=== PATIENT | female | born 1950 | race African-American/Black ===

== ENCOUNTER 2017-03-14 13:54 | Inpatient (IN) | payer MEDICAID ==
[~2017-03-14] VITALS: Ht 160 cm; Wt 114.0 kg
[2017-03-14 15:02] LABS: INR 1.1; PROTHROMBIN TIME 11.4 sec (9.4-11.6)
[2017-03-14 15:03] LABS: BASOPHILS % 0.7 % (0.0-2.0); HEMATOCRIT. 41.6 % (36.0-48.0); HEMOGLOBIN. 14.2 g/dL (12.0-16.0); LYMPHOCYTES % 31.6 % (20.0-50.0); MEAN CORPUSCULAR HEMOGLOBIN 31.6 pg (28.0-32.0); MEAN CORPUSCULAR VOLUME 92.3 fL (81.0-99.0); MONOCYTES % 9.6 % (2.0-8.0); NEUTROPHILS % 57.1 % (40.0-76.0); PLATELET 388 x1000/uL (130-400); RED BLOOD CELL COUNT 4.51 mill/uL (4.2-5.4)
[2017-03-14 15:45] LABS: CLARITY URINE CLEAR (CLEAR); COLOR URINE YELLOW (YELLOW); GLUCOSE URINE NEGATIVE (NEGATIVE); KETONES URINE TRACE (NEGATIVE); LEUKOCYTE ESTERASE URINE NEGATIVE (NEGATIVE); NITRITE URINE NEGATIVE (NEGATIVE); OCCULT BLOOD URINE NEGATIVE (NEGATIVE); PH URINE 6.5 (4.5-8.0); PROTEIN URINE NEGATIVE (NEGATIVE)
[2017-03-14 15:59] LABS: *AMPHETAMINES SCREEN URINE NEGATIVE (NEGATIVE); *BARBITURATES SCREEN URINE NEGATIVE (NEGATIVE); *BENZODIAZEPINES SCREEN URINE NEGATIVE (NEGATIVE); *COCAINE SCREEN URINE NEGATIVE (NEGATIVE); CANNABINOID URINE SCREEN NEGATIVE (NEGATIVE); METHADONE URINE SCREEN NEGATIVE (NEGATIVE); OPIATES URINE SCREEN NEGATIVE (NEGATIVE); PHENCYCLIDINE URINE SCREEN NEGATIVE (NEGATIVE)
[2017-03-14 16:38] LABS: CARBON DIOXIDE 25 mEq/L (21-32); CHLORIDE 103 mEq/L (98-107)
[2017-03-14] MEDS ORDERED: POTASSIUM CHLORIDE 20MEQ TABLET SR PO ONE (20:45)
[2017-03-14 22:22] VITALS: BP 184/104
[2017-03-14 22:24] VITALS: BP 184/104
[2017-03-14] MEDS ORDERED: CLONIDINE 0.1MG TABLET PO PRN (23:26)
[2017-03-14] MEDS ORDERED: POTASSIUM CHLORIDE 20MEQ TABLET SR PO NR (23:26)
[2017-03-15] VITALS (7 sets, daily range): BP systolic 109–157; BP diastolic 73–102
[2017-03-15 07:06] LABS: BASOPHILS % 0.4 % (0.0-2.0); HEMOGLOBIN. 12.9 g/dL (12.0-16.0); LYMPHOCYTES % 31.7 % (20.0-50.0); MEAN CORPUSCULAR HEMOGLOBIN 31.6 pg (28.0-32.0); MEAN CORPUSCULAR VOLUME 93.4 fL (81.0-99.0); MEAN PLATELET VOLUME 8.7 fl (7.4-10.4); MONOCYTES % 11.9 % (2.0-8.0); PLATELET 320 x1000/uL (130-400); RED BLOOD CELL COUNT 4.07 mill/uL (4.2-5.4); RED CELL DISTRIBUTION WIDTH 13.5 % (11.6-14.6)
[2017-03-15 07:44] LABS: CARBON DIOXIDE 23 mEq/L (21-32); CHLORIDE 108 mEq/L (98-107)
[2017-03-15] MEDS ORDERED: POTASSIUM CHLORIDE 20MEQ TABLET SR PO NR (08:45)
[2017-03-15] MEDS: METOPROLOL TARTRATE 50MG TABLET PO SCH ×2 (08:48→21:00)
[2017-03-15] MEDS: AMLODIPINE 10MG TABLET PO SCH (08:49)
[2017-03-15] MEDS: ASPIRIN 325MG EC TABLET PO SCH (14:22)
[2017-03-15] MEDS: ENOXAPARIN 100MG/ML SYR SUBCUT SCH (14:22)
[2017-03-15 15:17] LABS: VITAMIN B12 SERUM 900 pg/mL (211-911)
[2017-03-15 15:29] LABS: FOLIC ACID (FOLATE) SERUM > 20.00 ng/mL (>5.38)
[2017-03-16] VITALS: BP 131/94
[2017-03-16] MEDS: ENOXAPARIN 100MG/ML SYR SUBCUT SCH ×2 (01:18→17:11)
[2017-03-16 06:28] VITALS: BP 153/97
[2017-03-16 08:00] VITALS: BP 144/81
[2017-03-16] MEDS: AMLODIPINE 10MG TABLET PO SCH (08:49)
[2017-03-16] MEDS: METOPROLOL TARTRATE 50MG TABLET PO SCH ×2 (08:49→21:00)
[2017-03-16] MEDS: ASPIRIN 325MG EC TABLET PO SCH (08:49)
[2017-03-16 09:19] LABS: T4 FREE 1.25 ng/dL (0.76-1.46)
[2017-03-16 12:00] VITALS: BP 139/94
[2017-03-16 16:00] VITALS: BP 120/75
[2017-03-16 20:00] VITALS: BP 107/76
[2017-03-16] MEDS: ATORVASTATIN CALCIUM 20MG TABLET PO SCH (21:00)
[2017-03-17] VITALS: BP 141/84
[2017-03-17] MEDS: ENOXAPARIN 100MG/ML SYR SUBCUT SCH ×2 (02:07→15:11)
[2017-03-17 04:00] VITALS: BP 125/83
[2017-03-17 08:00] VITALS: BP 150/84
[2017-03-17] MEDS: AMLODIPINE 10MG TABLET PO SCH (08:54)
[2017-03-17] MEDS: METOPROLOL TARTRATE 50MG TABLET PO SCH ×2 (08:55→22:19)
[2017-03-17] MEDS: ASPIRIN 325MG EC TABLET PO SCH (08:55)
[2017-03-17 12:21] VITALS: BP 159/72
[2017-03-17 16:19] VITALS: BP 126/79
[2017-03-17 20:00] VITALS: BP 123/80
[2017-03-17] MEDS: ATORVASTATIN CALCIUM 20MG TABLET PO SCH (22:19)
[2017-03-17] MEDS ORDERED: WARFARIN SODIUM 7.5MG TABLET PO SCH (23:30)
[2017-03-18] VITALS: BP 143/92
[2017-03-18] MEDS: ENOXAPARIN 100MG/ML SYR SUBCUT SCH ×2 (03:49→15:01)
[2017-03-18 04:00] VITALS: BP 134/88
[2017-03-18 06:53] LABS: INR 1.1; PROTHROMBIN TIME 11.1 sec (9.4-11.6)
[2017-03-18 07:03] LABS: HEMATOCRIT. 36.1 % (36.0-48.0); HEMOGLOBIN. 12.2 g/dL (12.0-16.0); MEAN CORPUSCULAR HEMOGLOBIN 31.7 pg (28.0-32.0); MEAN CORPUSCULAR VOLUME 94.1 fL (81.0-99.0); PLATELET 263 x1000/uL (130-400); RED BLOOD CELL COUNT 3.84 mill/uL (4.2-5.4); RED CELL DISTRIBUTION WIDTH 13.3 % (11.6-14.6)
[2017-03-18 07:55] LABS: CARBON DIOXIDE 24 mEq/L (21-32); CHLORIDE 107 mEq/L (98-107)
[2017-03-18 08:00] VITALS: BP 135/87
[2017-03-18] MEDS: ASPIRIN 325MG EC TABLET PO SCH (09:36)
[2017-03-18] MEDS: METOPROLOL TARTRATE 50MG TABLET PO SCH ×2 (09:36→21:34)
[2017-03-18] MEDS: AMLODIPINE 10MG TABLET PO SCH (09:36)
[2017-03-18 11:54] VITALS: BP 119/63
[2017-03-18 16:00] VITALS: BP 148/82
[2017-03-18] MEDS ORDERED: WARFARIN SODIUM 7.5MG TABLET PO NR (18:00)
[2017-03-18] MEDS ORDERED: BISACODYL 5MG TABLET PO PRN (18:15)
[2017-03-18] MEDS: DOCUSATE SODIUM 100MG CAPSULE PO SCH (18:41)
[2017-03-18 20:00] VITALS: BP 133/84
[2017-03-18 20:42] LABS: PLATELET ESTIMATE NORMAL
[2017-03-18] MEDS: ATORVASTATIN CALCIUM 20MG TABLET PO SCH (21:34)
[2017-03-19] VITALS: BP 126/85
[2017-03-19 04:00] VITALS: BP 146/83
[2017-03-19] MEDS: ENOXAPARIN 100MG/ML SYR SUBCUT SCH ×2 (04:12→15:36)
[2017-03-19 07:01] LABS: INR 1.1
[2017-03-19 08:00] VITALS: BP 148/93
[2017-03-19] MEDS: AMLODIPINE 10MG TABLET PO SCH (10:05)
[2017-03-19] MEDS: ASPIRIN 325MG EC TABLET PO SCH (10:05)
[2017-03-19] MEDS: METOPROLOL TARTRATE 50MG TABLET PO SCH ×2 (10:06→21:13)
[2017-03-19] MEDS: DOCUSATE SODIUM 100MG CAPSULE PO SCH ×2 (10:06→17:00)
[2017-03-19 12:06] VITALS: BP 118/79
[2017-03-19 16:00] VITALS: BP 130/92
[2017-03-19] MEDS ORDERED: WARFARIN SODIUM 10MG TABLET PO NR (18:00)
[2017-03-19 20:00] VITALS: BP 132/84
[2017-03-19] MEDS ORDERED: ATORVASTATIN CALCIUM 40MG TABLET PO SCH (21:00)
[2017-03-20] VITALS: BP 135/79
[2017-03-20] MEDS: ENOXAPARIN 100MG/ML SYR SUBCUT SCH ×2 (02:00→14:34)
[2017-03-20 04:00] VITALS: BP 141/80
[2017-03-20 05:40] LABS: INR 1.4; PROTHROMBIN TIME 14.2 sec (9.4-11.6)
[2017-03-20 08:00] VITALS: BP 140/94
[2017-03-20] MEDS ORDERED: FENTANYL CITRATE/PF 50MCG/ML 2ML VIAL ONE (08:38)
[2017-03-20] MEDS ORDERED: MIDAZOLAM HCL 2 MG/2 ML VIAL ONE (08:39)
[2017-03-20] MEDS ORDERED: LIDOCAINE HCL 2% JELLY 5ML ONE (08:56)
[2017-03-20] MEDS ORDERED: TETRACAINE/BENZOCAINE/BUTAMBEN 20 GM SPRAY MM ONE (08:56)
[2017-03-20] MEDS ORDERED: ASPIRIN 81MG TABLET PO SCH (09:00)
[2017-03-20] MEDS: METOPROLOL TARTRATE 50MG TABLET PO SCH (11:12)
[2017-03-20] MEDS: DOCUSATE SODIUM 100MG CAPSULE PO SCH ×2 (11:13→17:25)
[2017-03-20] MEDS: AMLODIPINE 10MG TABLET PO SCH (11:13)
[2017-03-20 12:00] VITALS: BP 135/79
[2017-03-20 12:39] LABS: INR 1.5; PROTHROMBIN TIME 15.3 sec (9.4-11.6)
[2017-03-20 16:00] VITALS: BP 152/98
[2017-03-20] MEDS ORDERED: WARFARIN SODIUM 7.5MG TABLET PO SCH (18:00)
[2017-03-20 22:06] VITALS: BP 119/82
== END 2017-03-21 00:55 | DRG 45 ==
LOC: ER 17:24 → 5WST 19:59 → EDBEDREQ 20:01 → ENRESERV 20:21
PROVIDERS: ADMIT Internal Medicine; ATTEND Internal Medicine
DX: I63.40 Cerebral infarction due to embolism of unspecified cerebral artery (principal); G92 Toxic encephalopathy; E87.8 Other disorders of electrolyte and fluid balance, not elsewhere classified; R13.10 Dysphagia, unspecified; I10 Essential (primary) hypertension; R29.810 Facial weakness; I25.10 Atherosclerotic heart disease of native coronary artery without angina pectoris; E78.00 Pure hypercholesterolemia, unspecified; F80.9 Developmental disorder of speech and language, unspecified; Z79.01 Long term (current) use of anticoagulants; Z79.82 Long term (current) use of aspirin; Z82.3 Family history of stroke
CPT/HCPCS: 36415; 51702; 70450; 70544; 70553; 71010; 80048; 80053; 80061; 80305; 81003; 81025; 82607; 82746; 82962; 83036; 84439; 84443; 84481; 85007; 85025; 85027; 85610; 92523; 92610; 93005; 93306; 93312; 93880; 97112; 97162; 97166; 97530; 99285; J1650; J2250; J3010; A4315

== ENCOUNTER 2020-07-13 12:53 | Emergency (ER) | payer MEDICAID ==
[~2020-07-13] VITALS: Ht 167.6 cm; Wt 90.0 kg
[2020-07-13 16:26] LABS: BASOPHILS % 0.5 % (0.0-2.0); EOSINOPHILS % 2.1 % (0.0-5.0); HEMATOCRIT. 33.9 % (36.0-48.0); HEMOGLOBIN. 11.2 g/dL (12.0-16.0); LYMPHOCYTES % 14.7 % (20.0-50.0); MEAN CORPUSCULAR HEMOGLOBIN 29.6 pg (28.0-32.0); MEAN CORPUSCULAR VOLUME 89.6 fL (81.0-99.0); MEAN PLATELET VOLUME 8.4 fl (7.4-10.4); NEUTROPHILS % 73.7 % (40.0-76.0); PLATELET 350 x1000/uL (130-400); RED BLOOD CELL COUNT 3.78 mill/uL (4.2-5.4); RED CELL DISTRIBUTION WIDTH 15.2 % (11.6-14.6)
[2020-07-13 16:30] LABS: CHLORIDE 101 mEq/L (98-107)
[2020-07-13] MEDS ORDERED: CEFTRIAXONE SODIUM 1 G/VIAL IM ONE (16:30)
[2020-07-13] MEDS ORDERED: BACITRACIN ZINC OINT UDPKT TOP ONE (17:30)
[2020-07-13 18:20] VITALS: BP 114/84
== END 2020-07-13 19:40 | disposition home or self-care (01) ==
LOC: ER 12:53
DX: L02.01 Cutaneous abscess of face (principal); I10 Essential (primary) hypertension; E78.00 Pure hypercholesterolemia, unspecified; Z98.890 Other specified postprocedural states; Z86.73 Personal history of transient ischemic attack (TIA), and cerebral infarction without residual deficits
CPT/HCPCS: 36415; 70450; 80053; 85025; 87040; 96372; 99284; J0696; Z7610